=== PATIENT | male | born 1995 | race Two or more races ===

== ENCOUNTER 2025-11-06 10:47 | Emergency (ER) | payer MEDICAID ==
[~2025-11-06] VITALS: Ht 180.3 cm; Wt 140.6 kg
[2025-11-06 10:55] VITALS: BP 142/80; TEMP 97.8
[2025-11-06] MEDS ORDERED: CEPH-570 PO (11:07)
[2025-11-06 11:16] VITALS: O2SAT 98
== END 2025-11-06 11:16 | disposition home or self-care (01) ==
LOC: ER 10:53
DX: S60.450A Superficial foreign body of right index finger, initial encounter (principal); Z60.2 Problems related to living alone; W45.8XXA Other foreign body or object entering through skin, initial encounter; Y93.89 Activity, other specified; Y92.89 Other specified places as the place of occurrence of the external cause; Y99.8 Other external cause status